=== PATIENT | female | born 1970 | race Caucasian/White ===

== ENCOUNTER 2016-12-23 14:51 | Emergency (ER) | payer MEDICARE, MEDICAID ==
[2016-12-23 15:23] VITALS: BP 115/69
[2016-12-23] MEDS ORDERED: Acetaminophen TAB* 325 MG PO ONE (15:47)
--- NOTE | 2016-12-23 15:48 | UC ---
Knee Pain HPI - HPI Summary HPI Summary: patient fell on the right knee landing staight down on the patella, sustained a moderate sized abrasion that has erythema around the wound. swelling on anterior knee. - History of Current Complaint Chief Complaint: UCLowerExtremity Stated Complaint: FALL-SCRAP ON RT KNEE,RT KNEE PAIN Time Seen by Provider: 12/23/16 15:06 Hx Obtained From: Patient Hx Last Menstrual Period: 2013- UTERINE ABLATION ?: No Onset/Duration: Sudden Onset, Lasting Days Severity Initially: Moderate Severity Currently: Moderate Character: Aching, Stiffness Aggravating Factor(s): Movement, Weight Bearing, Prolonged Standing, Stairs Alleviating Factor(s): Rest Associated Signs And Symptoms: Positive: Swelling, Redness Able to Bear Weight: Yes - painful - Allergies/Home Medications Allergies/Adverse Reactions: Allergies Allergy/AdvReac Type Severity Reaction Status Date / Time Erythromycin Allergy Intermediate Rash Verified 12/23/16 15:03 Penicillins Allergy Intermediate Hives Verified 12/23/16 15:03 Sumatriptan [From Imitrex] Allergy Intermediate Rash Verified 12/23/16 15:03 Home Medications: Home Medications Aspirin [Aspirin 81 MG TAB] 81 mg PO DAILY 12/23/16 [History Confirmed 12/23/16] Atorvastatin* [Lipitor*] 60 mg PO DAILY 12/23/16 [History Confirmed 12/23/16] Bupropion HCl [Bupropion HCl Xl] 150 mg PO DAILY 12/23/16 [History Confirmed ] Glimepiride [Amaryl] 2 mg PO DAILY 12/23/16 [History Confirmed 12/23/16] Insulin GLARGINE(*) [Lantus(*)] 10 units SUBCUT DAILY 12/23/16 [History Confirmed 12/23/16] Levothyroxine TAB* [Synthroid TAB*] 100 mcg PO DAILY 12/23/16 [History Confirmed 12/23/16] Liraglutide [Victoza] 1.2 mg SC DAILY 12/23/16 [History Confirmed 12/23/16] Lisinopril [Lisinopril 2.5 MG-] 2.5 mg PO DAILY 12/23/16 [History Confirmed ] Metformin HCl [Metformin HCl ER] 1,000 mg PO BID 12/23/16 [History Confirmed ] Metoprolol Succinate [Toprol Xl] 50 mg PO 12/23/16 [History] Omeprazole CAP* [Prilosec CAP* 20 MG] 20 mg PO BID 12/23/16 [History Confirmed 12/23/16] Sitagliptin Phosphate [Januvia] 100 mg PO 12/23/16 [History] PMH/Surg Hx/FS Hx/Imm Hx Previously Healthy: Yes Endocrine History Of: Reports: Diabetes, Thyroid Disease - PT NOT SURE Cardiovascular History Of: Reports: Cardiac Disorders - BLOCKED CORONARY ARTERY , [place], TWO STENTS, Hypertension - Surgical History Surgical History: Yes Surgery Procedure, Year, and Place: TWO CORONARY STENTS 2009. [facility] - Family History Known Family History: Negative: Cardiac Disease, Hypertension - Social History Alcohol Use: Rare Substance Use Type: None Smoking Status (MU): Light Every Day Tobacco Smoker Type: Cigarettes Amount Used/How Often: 1/2 PPD Household Exposure Type: Cigarettes - Immunization History Most Recent Tetanus Shot: 2013 Review of Systems Constitutional: Negative Skin: Other - abraison Eyes: Negative, Other - legally blind ENT: Negative Respiratory: Negative Cardiovascular: Negative Gastrointestinal: Negative Genitourinary: Negative Motor: Negative Neurovascular: Negative Musculoskeletal: Arthralgia, Decreased ROM, Edema, Myalgia Neurological: Negative Psychological: Negative All Other Systems Reviewed And Are Negative: Yes Physical Exam Triage Information Reviewed: Yes Appearance: Well-Nourished, Ill-Appearing, Pain Distress Vital Signs: Initial Vital Signs Temp 96.8 F 12/23/16 15:10 Pulse 84 12/23/16 15:10 Resp 16 12/23/16 15:10 BP 115/69 12/23/16 15:10 Pulse Ox 97 12/23/16 15:10 Vital Signs Reviewed: Yes Eye Exam: Normal ENT: Positive: Hearing grossly normal, Pharynx normal, TMs normal Dental Exam: Normal Neck exam: Normal Neck: Positive: Supple, Nontender, No Lymphadenopathy Respiratory Exam: Normal Respiratory: Positive: Chest non-tender, Lungs clear, Normal breath sounds Cardiovascular Exam: Normal Cardiovascular: Positive: RRR, No Murmur, Pulses Normal Abdominal Exam: Normal Abdomen Description: Positive: Nontender, No Organomegaly, Soft Bowel Sounds: Positive: Present Musculoskeletal Exam: Normal Musculoskeletal: Positive: Strength Intact, ROM Limited @ - in flexion, Edema @ - anterior to patella Neurological Exam: Normal Neurological: Positive: Alert, Muscle Tone Normal Psychological Exam: Normal Skin Exam: Normal Knee Pain Course/Dx - Course Course Of Treatment: hx obtained, exam performed, meds reviewed, tylenol given and xray obtained negative for any fracture. treated for bursitis - Differential Dx/Diagnosis Differential Diagnosis/HQI/PQRI: Contusion, Dislocation, Fracture (Closed), Fracture (Open), Sprain, Strain Provider Diagnoses: prepatellar bursitis. knee pain. subcutaneous infection Discharge - Discharge Plan Condition: Stable Disposition: HOME Patient Education Materials: Knee Bursitis (ED) Additional Instructions: 1. keep the kevin on for swelling compression, may take it off to sleep, 2. apply the bactroban twice daily to the wound 3. follow up with any increase in symtpoms.
--- NOTE | 2016-12-23 16:33 | RAD ---
INDICATION: Laceration COMPARISON: None TECHNIQUE: AP, lateral, and oblique views were obtained. FINDINGS: There is no acute fracture. The knee articulates normally. There is no foreign body. There is mild prepatellar soft tissue swelling.. IMPRESSION: NO ACUTE BONY FINDINGS.
== END 2016-12-23 17:05 | disposition home or self-care (01) ==
LOC: UCCORT 14:51
DX: M70.41 Prepatellar bursitis, right knee (principal); Y93.9 Activity, unspecified; S80.211A Abrasion, right knee, initial encounter; L08.9 Local infection of the skin and subcutaneous tissue, unspecified; W19.XXXA Unspecified fall, initial encounter; Y92.9 Unspecified place or not applicable; M25.561 Pain in right knee; E11.9 Type 2 diabetes mellitus without complications; Z79.4 Long term (current) use of insulin; Z79.84 Long term (current) use of oral hypoglycemic drugs; I25.2 Old myocardial infarction; I10 Essential (primary) hypertension; Z95.5 Presence of coronary angioplasty implant and graft; Z98.49 Cataract extraction status, unspecified eye; H54.8 Legal blindness, as defined in USA; Z88.1 Allergy status to other antibiotic agents; Z88.0 Allergy status to penicillin; Z88.8 Allergy status to other drugs, medicaments and biological substances; F17.210 Nicotine dependence, cigarettes, uncomplicated
CPT/HCPCS: 99212; A9270-GY; G0463

== ENCOUNTER 2017-03-01 13:11 | Emergency (ER) | payer MEDICARE, MEDICAID ==
--- NOTE | 2017-03-01 13:40 | UC ---
Respiratory Complaint HPI - HPI Summary HPI Summary: harsh,cough, low grade temp for 3 days---up at night coughing - History of Current Complaint Stated Complaint: COUGH,CHEST CONGESTION Time Seen by Provider: 03/01/17 13:22 Hx Obtained From: Patient Hx Last Menstrual Period: 2013- UTERINE ABLATION ?: No Onset/Duration: Gradual Onset, Lasting Days - 7, Worse Since - past 3 days Timing: Constant Severity Initially: Mild Severity Currently: Moderate Pain Intensity: 6 Pain Scale Used: 0-10 Numeric Character: Cough: Nonproductive Aggravating Factors: Deep Breaths Alleviating Factors: Nothing Associated Signs And Symptoms: Positive: Fever, Chills, URI - Allergies/Home Medications Allergies/Adverse Reactions: Allergies Allergy/AdvReac Type Severity Reaction Status Date / Time Erythromycin Allergy Intermediate Rash Verified 03/01/17 13:48 Penicillins Allergy Intermediate Hives Verified 03/01/17 13:48 Sumatriptan [From Imitrex] Allergy Intermediate Rash Verified 03/01/17 13:48 PMH/Surg Hx/FS Hx/Imm Hx Previously Healthy: No Endocrine History: Diabetes, Thyroid Disease, Hypothyroidism, Dyslipidemia Cardiovascular History: Hypertension GI/ History: Gastroesophageal Reflux Psychological History: Depression - Surgical History Surgical History: Yes Surgery Procedure, Year, and Place: TWO CORONARY STENTS 2009. [facility] - Family History Known Family History: Positive: None Negative: Cardiac Disease, Hypertension - Social History Occupation: Disabled Lives: With Family Alcohol Use: Rare Substance Use Type: None Smoking Status (MU): Light Every Day Tobacco Smoker Type: Cigarettes Amount Used/How Often: 1/2 PPD Household Exposure Type: Cigarettes Cessation Counseling: Counseled 3+Min - 10 Min - Immunization History Most Recent Tetanus Shot: 2013 Review of Systems Constitutional: Chills Skin: Negative Eyes: Negative ENT: Negative, Nasal Discharge Respiratory: Cough Cardiovascular: Negative Gastrointestinal: Negative Genitourinary: Negative Motor: Negative Neurovascular: Negative Musculoskeletal: Negative Neurological: Negative Psychological: Negative All Other Systems Reviewed And Are Negative: Yes Physical Exam Triage Information Reviewed: Yes Appearance: Well-Nourished, Ill-Appearing - chronic illness, Pain Distress - mild Vital Signs Reviewed: Yes Eye Exam: Normal Eyes: Positive: Conjunctiva Clear ENT Exam: Normal ENT: Positive: Normal ENT inspection, Hearing grossly normal, Pharynx normal, Nasal congestion, TMs normal. Negative: Nasal drainage, Tonsillar swelling, Tonsillar exudate, Trismus, Muffled/hoarse voice Neck exam: Normal Neck: Positive: Supple, Nontender, No Lymphadenopathy Respiratory Exam: Normal Respiratory: Positive: Chest non-tender, No respiratory distress, No accessory muscle use, Wheezing - inspiratory Cardiovascular Exam: Normal Cardiovascular: Positive: RRR, No Murmur, Pulses Normal, Brisk Capillary Refill Musculoskeletal Exam: Normal Musculoskeletal: Positive: Strength Intact, ROM Intact, No Edema Neurological Exam: Normal Neurological: Positive: Alert, Muscle Tone Normal Psychological Exam: Normal Skin Exam: Normal Respiratory Course/Dx - Course Course Of Treatment: zithromax, robutussin and Codiene, Albuterol, Increase fluids, follow with pcp - Differential Dx/Diagnosis Differential Diagnosis/HQI/PQRI: Asthma, Bronchitis, Exacerbation Of COPD, Laryngitis, Lower Resp Infection, Sinusitis Provider Diagnoses: Bronchitis, with bronchospasm Discharge - Discharge Plan Condition: Stable Disposition: HOME Prescriptions: Albuterol HFA INHALER* [Ventolin HFA Inhaler*] 2 puff INH Q4H PRN #1 mdi PRN Reason: cough/wheeze Azithromycin TAB* [Zithromax TAB (Z-TOMÁS) 250 mg #6 tabs] 2 tab PO DAILY #6 tab guaiFENesin/CODIEN 100MG-10MG* [Robitussin AC 100Mg-10Mg*] 10 ml PO Q4H PRN # 120 udc MDD 60 PRN Reason: cough Patient Education Materials: How to Stop Smoking (ED), Acute Bronchitis (ED), Bronchospasm (ED), How to Use a Metered-Dose Inhaler (ED) Referrals: Anya Perales MD [Primary Care Provider] - 1 Week
[2017-03-01 13:55] VITALS: BP 112/65
== END 2017-03-01 13:56 | disposition home or self-care (01) ==
LOC: UCCORT 13:11
DX: J40 Bronchitis, not specified as acute or chronic (principal); F17.210 Nicotine dependence, cigarettes, uncomplicated; E11.9 Type 2 diabetes mellitus without complications; E03.9 Hypothyroidism, unspecified; Z88.0 Allergy status to penicillin; E78.5 Hyperlipidemia, unspecified; K21.9 Gastro-esophageal reflux disease without esophagitis; F32.9 Major depressive disorder, single episode, unspecified
CPT/HCPCS: 99212; G0463